=== PATIENT | female | born 1940 | race Caucasian/White ===

== ENCOUNTER → 2017-01-15 | Outpatient (CLI) | payer OTHER, BC ==
--- NOTE | 2017-01-15 10:34 | DI ---
CT BONE DENSITOMETRY OF THE SPINE AND HIP, 01/15/2017 9:46 AM : Clinical History: Asymptomatic post menopausal patient. Screening. Previous Exam: 05/10/2008; 08/23/2010; 08/13/2012; and 10/16/2015. 3D Quantitative CT (QCT) Bone Mineral Densitometry: The [place] scans are normal. Low dose scans are sampled through the midbodies of L1 and L2. Average bone mineral density (BMD) is 89.0 mg/mL corresponding to a volumetric T-score of -3.1, and Z-score o f 0.3. The [employer]'s (ACR) volumetric QCT BMD conversion table categorizes this patient as having osteopenia of the lumbar spine. The previous exams gave bone mineral density value s of 58.8, 63.5, 51.2, and 82.9 mg per mL, respectively. CT X-Ray Absorptiometry (CTXA) Bone Mineral Densitometry of the Left Hip: Total hip BMD: 895 mg/cm2 T-score: -0.2 Z-score: 1.3 Femoral neck BMD: 864 mg/cm2 T-score: 0.6 Z-score: 2.6 READIN. The QCT lumbar spine BMD value by ACR's 3D volumetric to 2D areal conversion categorizes this pat ient as having osteopenia of the lumbar spine. The QCT spine T-score is indicative of osteoporosis of the lumbar spine. There has been only modest improvement since the most recent exam. 2. The CTXA total hip and femoral neck BMD T-scores are -0.2 and 0.6, respectively. The left total h ip T-score indicates this patient has normal bone mineral density of the total hip, and there has bee n no significant interval change since the most recent exam.
== END ==
LOC: CT 09:44
PROVIDERS: ATTEND Family Medicine
DX: M81.0 Age-related osteoporosis without current pathological fracture (principal)
CPT/HCPCS: 77078